=== PATIENT | male | born 1955 | race Caucasian/White ===

== ENCOUNTER 2018-09-28 07:52 | Day surgery (SDC) | payer MEDICARE, BC ==
[2018-09-28] MEDS ORDERED: Lactated Ringers 1,000 ML IV ONE (07:53)
[2018-09-28] MEDS ORDERED: Propofol 200 MG/20 ML SDV IV ONE (07:53)
[2018-09-28] MEDS ORDERED: Lactated Ringers 1,000 ML IV SCH (08:00)
[2018-09-28] MEDS ORDERED: Sodium Chloride 0.9% 10 ML Syringe FLUSH PRN (08:00)
--- NOTE | 2018-09-28 09:32 | PCM.OPNOTE ---
- General Post-Op/Procedure Note Date of Surgery/Procedure: 09/28/18 Operative Procedure(s): c scope Findings: normal exam Pre Op Diagnosis: screening Post-Op Diagnosis: nl colonoscopy Anesthesia Technique: MAC Primary Surgeon: Colby Lin Anesthesia Provider: Sylvie Morgan Pathology: none Complications: None Condition: Good Free Text/Narrative:: see dictation
--- NOTE | 2018-09-28 10:00 | OR ---
DATE OF OPERATION: 09/28/2018 SURGEON: Colby Lin MD PROCEDURE PERFORMED: Colonoscopy. PREOPERATIVE DIAGNOSIS: Need for screening C-scope. POSTOPERATIVE DIAGNOSIS: Normal exam. INDICATIONS FOR PROCEDURE: This is a 62-year-old white male, who presents for screening colonoscopy. He was offered and accepted same. DESCRIPTION OF OPERATION: After an excellent IV sedation was administered, digital rectal exam was performed. No marked abnormality was noted. Flexible colonoscope was inserted and advanced to the cecum. Prep was excellent. The following findings were noted. Ascending colon, unremarkable. Transverse colon, unremarkable. Descending colon, unremarkable. Sigmoid and rectum, unremarkable. Colon was deflated as the scope was removed. The patient tolerated the procedure well and was taken to recovery room in good condition. Repeat colonoscopy in 10 years. /[id number] /MODL
== END 2018-09-28 10:39 | disposition home or self-care (01) ==
LOC: FB.SDS 07:52
PROVIDERS: ATTEND Surgery
DX: Z12.11 Encounter for screening for malignant neoplasm of colon (principal); E11.9 Type 2 diabetes mellitus without complications; E78.2 Mixed hyperlipidemia; F17.210 Nicotine dependence, cigarettes, uncomplicated; Z86.73 Personal history of transient ischemic attack (TIA), and cerebral infarction without residual deficits; Z79.84 Long term (current) use of oral hypoglycemic drugs; Z79.01 Long term (current) use of anticoagulants; Z79.899 Other long term (current) drug therapy
CPT/HCPCS: 00812-QZ; 82962; J2704; J7120